=== PATIENT | female | born 1970 | race American Indian/Alaskan Native ===

== ENCOUNTER 2021-11-27 19:20 | Emergency (ER) | payer MEDICAID ==
[2021-11-27] MEDS ORDERED: diphenhydrAMINE 50 MG/ML VIAL IV ONE (21:06)
[2021-11-27] MEDS ORDERED: ACETAMINOPHEN 500 MG TAB PO ONE (21:06)
[2021-11-27] MEDS ORDERED: dexAMETHasone 20 MG/5 ML VIAL IV ONE (21:06)
[2021-11-27] MEDS ORDERED: METOCLOPRAMIDE 10 MG/2 ML INJ IV ONE (21:06)
--- NOTE | 2021-11-27 21:46 | Emergency Department Report ---
ED General Adult HPI - General Chief complaint: Headache Stated complaint: SEVERE HEAD & CHEST PAIN Time Seen by Provider: 11/27/21 21:06 Source: EMS Mode of arrival: Stretcher Limitations: No Limitations - History of Present Illness Initial comments: Patient 51-year-old female with history of hypertension, seizures, CVA 2020, and migraine headaches for the past 20 years. Patient states headache with dizziness and photophobia and 1 episode of nausea vomiting at work today. Patient states pain is 5/10 this is usual intensity location and duration of her usual migraine headache. Patient is followed by primary care primary care has prescribed ibuprofen as needed headache. Patient is followed by [facility]. Blood Pressures controlled by lisinopril. Patient denies numbness tingling no weakness no dysphagia, patient denies chest pain, there is no shortness of breath no diaphoresis. States chest pain was 1 episode no chest pain since. Severity scale (0 -10): 8 - Related Data Previous Rx's Medication Instructions Recorded Last Taken Type Butalb/Acetamin/Caff 50-325-40 1 tab PO Q6HR PRN #12 tab 11/27/21 Unknown Rx [Fioricet 50-325-40] Potassium Chloride [K-Dur] 20 meq PO BID 3 Days #6 tab 11/27/21 Unknown Rx Allergies Allergy/AdvReac Type Severity Reaction Status Date / Time No Known Allergies Allergy Unverified 11/27/21 19:34 ED Review of Systems ROS: Stated complaint: SEVERE HEAD & CHEST PAIN Other details as noted in HPI Constitutional: denies: chills, fever Eyes: other. denies: eye pain, eye discharge, vision change ENT: denies: ear pain, throat pain Respiratory: denies: cough, shortness of breath, wheezing Cardiovascular: denies: chest pain, palpitations Endocrine: no symptoms reported Gastrointestinal: nausea, vomiting. denies: abdominal pain, diarrhea Genitourinary: denies: urgency, dysuria, discharge Musculoskeletal: denies: back pain, joint swelling, arthralgia Skin: denies: rash, lesions Neurological: headache, vertigo. denies: numbness, paresthesias, confusion Psychiatric: denies: anxiety, depression Hematological/Lymphatic: denies: easy bleeding, easy bruising ED Past Medical Hx - Past Medical History Previous Medical History?: Yes Hx Hypertension: Yes Hx CVA: Yes (2020) Hx Seizures: Yes - Surgical History Past Surgical History?: No - Social History Smoking Status: Unknown if ever smoked Substance Use Type: None - Medications Home Medications: Home Medications Medication Instructions Recorded Confirmed Last Taken Type Butalb/Acetamin/Caff 50-325-40 1 tab PO Q6HR PRN #12 tab 11/27/21 Unknown Rx [Fioricet 50-325-40] Potassium Chloride [K-Dur] 20 meq PO BID 3 Days #6 tab 11/27/21 Unknown Rx ED Physical Exam - General Limitations: No Limitations General appearance: alert, in no apparent distress - Head Head exam: Present: normocephalic, normal inspection - Eye Eye exam: Present: PERRL, EOMI. Absent: conjunctival injection, nystagmus Pupils: Present: normal accommodation - ENT ENT exam: Present: normal orophraynx, mucous membranes moist, TM's normal bilaterally, normal external ear exam - Neck Neck exam: Present: normal inspection, full ROM. Absent: tenderness, meningismus, lymphadenopathy - Respiratory Respiratory exam: Present: normal lung sounds bilaterally. Absent: respiratory distress, wheezes, stridor - Cardiovascular Cardiovascular Exam: Present: regular rate, normal rhythm, normal heart sounds. Absent: systolic murmur, diastolic murmur, rubs, gallop - GI/Abdominal GI/Abdominal exam: Present: soft, normal bowel sounds. Absent: distended, tenderness - Rectal Rectal exam: Present: deferred - Extremities Exam Extremities exam: Present: normal inspection, full ROM, normal capillary refill. Absent: tenderness - Back Exam Back exam: Present: normal inspection, full ROM. Absent: CVA tenderness (R), CVA tenderness (L) - Neurological Exam Neurological exam: Present: alert, oriented X3, CN II-XII intact, normal gait, reflexes normal. Absent: motor sensory deficit - Expanded Neurological Exam Expanded Patient oriented to: Present: person, place, time Speech: Present: fluid speech Cranial nerves: EOM's Intact: Normal, Gag Reflex: Normal, Tongue Deviation: Normal, Nystagmus: Normal, Facial Sensation: Normal Cerebellar function: Finger to Nose: Normal Upper motor neuron: Sean Neglect: Normal, Pronator Drift: Normal Motor strength exam: RUE: 5, LUE: 5, RLE: 5, LLE: 5 Best Eye Response ([place]): (4) open spontaneously Best Motor Response ([place]): (6) obeys commands Best Verbal Response ([place]): (5) oriented [place] Total: 15 - Psychiatric Psychiatric exam: Present: normal affect, normal mood - Skin Skin exam: Present: warm, dry, intact, normal color. Absent: rash ED Course Vital Signs 11/27/21 11/27/21 19:34 23:21 Temperature 98.0 F Pulse Rate 88 Respiratory 18 16 Rate Blood Pressure 141/93 O2 Sat by Pulse 100 Oximetry ED Medical Decision Making - Lab Data Result diagrams: 11/27/21 21:53 11/27/21 21:53 Labs 11/27/21 11/27/21 21:53 21:53 WBC 8.9 RBC 3.83 Hgb 11.7 Hct 35.0 MCV 92 MCH 31 MCHC 33 RDW 16.7 H Plt Count 226 Lymph % (Auto) 18.1 Curry % (Auto) 6.9 Eos % (Auto) 0.0 Baso % (Auto) 0.4 Lymph # (Auto) 1.6 Curry # (Auto) 0.6 Eos # (Auto) 0.0 Baso # (Auto) 0.0 Seg Neutrophils % 74.6 H Seg Neutrophils # 6.7 Sodium 138 Potassium 3.0 L Chloride 96.9 L Carbon Dioxide 25 Anion Gap 21 BUN 6 L Creatinine 0.4 L Estimated GFR > 60 BUN/Creatinine Ratio 15 Glucose 120 H Calcium 9.0 Total Bilirubin 1.30 H AST 71 H ALT 22 Alkaline Phosphatase 88 Troponin T < 0.010 Total Protein 8.3 H Albumin 3.7 L Albumin/Globulin Ratio 0.8 - EKG Data EKG shows normal: sinus rhythm, axis, intervals, QRS complexes, ST-T waves Rate: normal - EKG Data When compared to previous EKG there are: previous EKG unavailable Interpretation: normal EKG (Sinus rhythm no ST elevated UT interpreted by ED at [facility].) - Radiology Data Radiology results: report reviewed, image reviewed CT HEAD WITHOUT CONTRAST INDICATION / CLINICAL INFORMATION: headache hx of CVA. TECHNIQUE: All CT scans at this location are performed using CT dose reduction for ALARA by means of automated exposure control. COMPARISON: None available. FINDINGS: BRAIN PARENCHYMA: No acute intracranial hemorrhage. No evidence of recent infarct. No mass effect or midline shift. Mild chronic small vessel ischemic changes. VENTRICULAR SYSTEM/EXTRA-AXIAL SPACES: Ventricles are normal for age. No extra- axial fluid collection. ORBITS: Normal as visualized. SKELETAL SYSTEM/SOFT TISSUES: Normal bones and soft tissues. PARANASAL SINUSES/MASTOID AIR CELLS: No significant abnormality. ADDITIONAL FINDINGS: None. IMPRESSION: 1. No acute intracranial abnormality. Signer Name: Eduardo Garcia MD Signed: 11/27/2021 10:23 PM Workstation Name: [id number] Transcribed By: JS Dictated By: EDUARDO GARCIA MD Electronically Authenticated By: EDUARDO GARCIA MD Signed Date/Time: 11/27/212222 DD/ 19 TD/TT: - Medical Decision Making Pain is improved with medications given in ED. Patient has ambulated from room to bathroom and returned to room without increase in symptoms there is no dizziness no lightheadedness no nausea no vomiting no diaphoresis no chest pain no shortness of breath. CT head is normal no mass no CVA no soft tissue abnormality, EKG is normal sinus rhythm no ST elevated UT interpreted by ED attending. Troponin is less than 0.01, heart score is 0 SAJAN score is 0. There is no focal weakness no paralysis no slurred speech. Headache is improved to a 2/10. Plan DC to home, with prescriptions. Follow-up with primary care doctor in 1 to 2 days. Return to emergency department should symptoms worsen. Critical care attestation.: If time is entered above; I have spent that time in minutes in the direct care of this critically ill patient, excluding procedure time. ED Disposition Clinical Impression: Hypokalemia Headache Qualifiers: Headache type: unspecified Headache chronicity pattern: acute headache Intractability: not intractable Qualified Code(s): R51.9 - Headache, unspecified Disposition: 01 HOME / SELF CARE / HOMELESS Is pt being admited?: No Does the pt Need Aspirin: No Condition: Stable Instructions: Acetaminophen; Caffeine tablets, Migraine Headache Additional Instructions: Take medications as prescribed, follow-up with your doctor in 2 to 3 days. Return to emergency department should symptoms worsen. Prescriptions: Butalb/Acetamin/Caff 50-325-40 [Fioricet 50-325-40] 1 tab PO Q6HR PRN #12 tab PRN Reason: Headache Potassium Chloride [K-Dur] 20 meq PO BID 3 Days #6 tab Referrals: MITCHELL COPELAND MD [Referring] - 2-3 Days Forms: Work/School Release Form(ED) Time of Disposition: 23:56
[2021-11-27 22:19] LABS: Basophils % (Auto) 0.4 % (0.0-1.8); Hemoglobin 11.7 gm/dl (10.1-14.3); Lymphocytes # (Auto) 1.6 K/mm3 (1.2-5.4); Lymphocytes % (Auto) 18.1 % (13.4-35.0); Mean Corpuscular HGB Conc 33 % (30-34); Mean Corpuscular Volume 92 fl (79-97); Monocytes # (Auto) 0.6 K/mm3 (0.0-0.8); Monocytes % (Auto) 6.9 % (0.0-7.3); Platelet Count 226 K/mm3 (140-440); Red Blood Count 3.83 M/mm3 (3.65-5.03); Red Cell Distribution Width 16.7 % (13.2-15.2)
--- NOTE | 2021-11-27 22:27 | Cat Scan Report ---
CT HEAD WITHOUT CONTRAST INDICATION / CLINICAL INFORMATION: headache hx of CVA. TECHNIQUE: All CT scans at this location are performed using CT dose reduction for ALARA by means of automated exposure control. COMPARISON: None available. FINDINGS: BRAIN PARENCHYMA: No acute intracranial hemorrhage. No evidence of recent infarct. No mass effect or midline shift. Mild chronic small vessel ischemic changes. VENTRICULAR SYSTEM/EXTRA-AXIAL SPACES: Ventricles are normal for age. No extra-axial fluid collection . ORBITS: Normal as visualized. SKELETAL SYSTEM/SOFT TISSUES: Normal bones and soft tissues. PARANASAL SINUSES/MASTOID AIR CELLS: No significant abnormality. ADDITIONAL FINDINGS: None. IMPRESSION: 1. No acute intracranial abnormality. Signer Name: Delon Méndez MD Signed: 11/27/2021 10:23 PM Workstation Name: [id number]
[2021-11-27 22:30] LABS: Alanine Aminotransferase 22 units/L (7-56); Albumin 3.7 g/dL (3.9-5); Blood Urea Nitrogen 6 mg/dL (7-17); Hemolysis Index 3
[2021-11-27 22:37] LABS: BUN/Creatinine Ratio 15
[2021-11-27] MEDS ORDERED: SODIUM CHLORIDE 0.9% 500 ML 500 ML IV ONE (23:06)
[2021-11-27] MEDS ORDERED: MORPHINE 2 MG/1 ML INJ IV ONE (23:06)
[2021-11-27] MEDS: ONDANSETRON 4 MG/2 ML INJ IV ONE ×2 (23:21→23:23)
[2021-11-27] MEDS ORDERED: POTASSIUM CHLORIDE ER 20 MEQ TAB PO ONE (23:43)
[2021-11-28 00:39] VITALS: BP 156/87
--- NOTE | 2021-11-28 08:59 | Electrocardiograph Report ---
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
== END 2021-11-28 01:09 | disposition home or self-care (01) ==
LOC: ED 19:20
DX: E87.6 Hypokalemia (principal); R51.9 Headache, unspecified; I10 Essential (primary) hypertension
CPT/HCPCS: 36415; 70450; 80053; 84484; 85025; 93005; 96374; 96375; 99284; J1100; J1200; J2270; J2405; J2765; J7040